=== PATIENT | male | born 1985 | race Caucasian/White ===

== ENCOUNTER 2019-06-04 22:42 | Emergency (ER) | payer OTHER, MEDICARE ==
[~2019-06-04] VITALS: Ht 182.9 cm; Wt 99.8 kg
[~2019-06-04 22:42] MED LIST: TRAM50 PO
[2019-06-05] MEDS ORDERED: CEPH500 PO (01:32)
== END 2019-06-05 01:40 | disposition home or self-care (01) ==
LOC: ER 22:42
DX: S01.511A Laceration without foreign body of lip, initial encounter (principal); S01.512A Laceration without foreign body of oral cavity, initial encounter; S40.021A Contusion of right upper arm, initial encounter; S60.222A Contusion of left hand, initial encounter; S02.5XXA Fracture of tooth (traumatic), initial encounter for closed fracture; V89.9XXA Person injured in unspecified vehicle accident, initial encounter; Z88.1 Allergy status to other antibiotic agents; Z79.891 Long term (current) use of opiate analgesic
CPT/HCPCS: 12051; 99283-25; A9270

== ENCOUNTER 2019-06-05 21:33 | Emergency (ER) | payer OTHER, MEDICARE ==
[~2019-06-05] VITALS: Ht 182.9 cm; Wt 90.7 kg
[~2019-06-05 21:33] MED LIST changes: +CEPH500 PO
== END 2019-06-06 00:51 | disposition home or self-care (01) ==
LOC: ER 21:33
DX: S06.0X0A Concussion without loss of consciousness, initial encounter (principal); S02.2XXA Fracture of nasal bones, initial encounter for closed fracture; S01.511A Laceration without foreign body of lip, initial encounter; K03.81 Cracked tooth; Z88.1 Allergy status to other antibiotic agents; Z79.891 Long term (current) use of opiate analgesic; V00.832A Motorized mobility scooter colliding with stationary object, initial encounter
CPT/HCPCS: 70450; 70486; 99283-25; A9270

== ENCOUNTER 2020-02-06 06:17 | Day surgery (SDC) | payer MEDICARE, BC ==
[~2020-02-06] VITALS: Ht 182.9 cm; Wt 101.2 kg
[~2020-02-06 06:17] MED LIST changes: +AMPDEX30CR PO; +Percocet 5-3251 EACH
--- NOTE | 2020-02-06 07:33 | NUR ---
02/06/20 0733 Christian Dickinson PT REPORTED BEING ON ORAL PCN FOR TOOTH PAIN. LAST DOSE WAS TAKEN ON 02/03/20. DR POWER AND DR SPRINGER BOTH MADE AWARE. NO NEW ORDERS GIVEN.
--- NOTE | 2020-02-06 08:10 | NUR ---
02/06/20 0810 Casey Dallas ARM CLEANED WITH ALCOHOL & PEROXIDE BEFORE PREPPING W/ CHLORAPREP.
== END 2020-02-06 10:37 | disposition home or self-care (01) ==
LOC: ORSCSDS 06:17
PROVIDERS: Orthopaedic Surgery
PROC: 0RNJ4ZZ Release Right Shoulder Joint, Percutaneous Endoscopic Approach (ICD-10-PCS; principal; 2020-02-06 07:30)
DX: M75.41 Impingement syndrome of right shoulder (principal); M75.111 Incomplete rotator cuff tear or rupture of right shoulder, not specified as traumatic; I10 Essential (primary) hypertension; F43.10 Post-traumatic stress disorder, unspecified; F32.9 Major depressive disorder, single episode, unspecified; Z79.899 Other long term (current) drug therapy
CPT/HCPCS: J0171; J0690; J0735; J1100; J1885; J2250; J2405; J2704; J2795; J3010; J7040; J7120